=== PATIENT | female | born 2000 | race Caucasian/White ===

== ENCOUNTER 2019-07-25 02:03 | Emergency (ER) | payer MEDICAID ==
[2019-07-25 02:15] VITALS: BP 120/79
[2019-07-25] MEDS ORDERED: diazePAM INJ 5 MG/ML SYRINGE IM STA (02:21)
--- NOTE | 2019-07-25 02:28 | ED Physician Documentation ---
History of Present Illness - Stated complaint Stated Complaint: JAW PX - Chief complaint Chief Complaint: Heent - History obtained from History obtained from: Patient - History of Present Illness Timing: Today Pain level max: 6 Pain level now: 4 - Additonal information Additional information: 18-year-old female with a jaw dislocation. She states that this is happened to her in the past. She states she needs surgery on her temporomandibular joints. She was unable to reduce out at home. Came in for evaluation. Nothing makes it better or worse. Her jaw is stuck open. 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 : None HEENT: Other Psych: Depression, Anxiety Musculoskeletal: None Derm: None - Past Surgical History Past Surgical History: No - Allergies Allergies/Adverse Reactions: Allergies Allergy/AdvReac Type Severity Reaction Status Date / Time soy AdvReac Unknown Verified 07/25/19 02:15 cough suppresant AdvReac Unknown Uncoded 07/25/19 02:16 latex AdvReac Unknown Uncoded 07/25/19 02:18 stimulant AdvReac Unknown Uncoded 07/25/19 02:16 - Social History Does the pt smoke?: No Smoking Status: Never smoker Does the pt drink ETOH?: No Does the pt have substance abuse?: No - Immunizations Immunizations are current?: Yes - POLST Patient has POLST: No PD ED PE NORMAL - Vitals Vital signs reviewed: Yes - General General: Alert and oriented X 3, No acute distress - HEENT HEENT: Moist mucous membranes (Mouth held in open position. Slight drooling) - Neck Neck: Supple, no meningeal sign - Cardiac Cardiac: RRR - Respiratory Respiratory: No respiratory distress, Clear bilaterally - Derm Derm: Warm and dry - Neuro Neuro: Alert and oriented X 3 Results - Vitals Vitals: Vital Signs - 24 hr 07/25/19 07/25/19 02:13 02:15 Temperature 36.6 C Heart Rate 89 Respiratory 17 18 Rate Blood Pressure 120/79 O2 Saturation 99 Oxygen O2 Source Room air Procedures - General procedure General procedure: 5 mg of IM Valium was given to the patient. Extraoral reduction was then performed bilaterally with excellent results. No complications. Patient tolerated well. PD MEDICAL DECISION MAKING - ED course Complexity details: re-evaluated patient, considered differential, d/w patient ED course: Patient with bilateral TMJ dislocation. Attempted reduction with no sedation, but painful for the patient. Therefore 5 mg of IM Valium were given. Extraoral reduction was then reattempted and achieved. Patient with excellent results. No complications. Patient counseled regarding signs and symptoms for which I believe and urgent re-evaluation would be necessary. Patient with good understanding of and agreement to plan and is comfortable going home at this time This document was made in part using voice recognition software. While efforts are made to proofread this document, sound alike and grammatical errors may occur. Departure - Departure Disposition: 01 Home, Self Care Clinical Impression: Temporomandibular joint dislocation Qualifiers: Encounter type: initial encounter Qualified Code(s): S03.00XA - Dislocation of jaw, unspecified side, initial encounter Condition: Good Instructions: ED Dislocation Mandible Follow-Up: ZEESHAN CISNEROS [Physician No Access] - Zeeshan Cisneros DDS [Provider Admit Priv/Credential] - Comments: Return if you worsen. Dr. Cisneros is a local oral maxillofacial surgeon who may be able to help with your recurrent dislocations
== END 2019-07-25 02:50 | disposition home or self-care (01) ==
LOC: ED 02:03
DX: S03.03XA Dislocation of jaw, bilateral, initial encounter (principal); X58.XXXA Exposure to other specified factors, initial encounter
CPT/HCPCS: 21480

== ENCOUNTER 2019-08-21 09:52 | Outpatient (CLI) | payer MEDICAID ==
[2019-08-21 10:19] LABS: BASOPHILS # (AUTO) 0.1 10^3/uL (0.0-0.1); BASOPHILS % (AUTO) 1.3 %; EOSINOPHILS # (AUTO) 0.3 10^3/uL (0.0-0.7); EOSINOPHILS % (AUTO) 3.9 %; HGB - HEMOGLOBIN 13.4 g/dL (12.0-16.0); LYMPHOCYTES # (AUTO) 2.5 10^3/uL (1.5-3.5); LYMPHOCYTES % (AUTO) 36.4 %; MEAN CORPUSCULAR HEMOGLOBIN 30.7 pg (27.0-31.0); MEAN CORPUSCULAR HGB CONC 33.4 g/dL (32.0-36.0); MEAN PLATELET VOLUME 9.4 fL (7.9-10.8); MONOCYTES # (AUTO) 0.5 10^3/uL (0.0-1.0); MONOCYTES % (AUTO) 6.8 %; NEUTROPHILS # (AUTO) 3.5 10^3/uL (1.5-6.6); NEUTROPHILS % (AUTO) 51.3 %; PLT - PLATELET COUNT 268 10^3/uL (130-450); RED BLOOD COUNT 4.36 10^6/uL (4.20-5.40); RED CELL DISTRIBUTION WIDTH 13.7 % (12.0-15.0); WHITE BLOOD COUNT 6.9 x10^3/uL (4.8-10.8)
[2019-08-21 10:29] LABS: MUDS CUTOFF CONCENTRATIONS CUTOFF CONC BELOW:
[2019-08-21 10:38] LABS: ALBUMIN 4.5 g/dL (3.2-5.5); ALBUMIN/GLOBULIN RATIO 1.4 (1.0-2.2); BILIRUBIN,TOTAL 1.1 mg/dL (0.2-1.0); CALCIUM 9.3 mg/dL (8.5-10.3); CREATININE 0.8 mg/dL (0.4-1.0); TOTAL PROTEIN 7.7 g/dL (6.7-8.2)
[2019-08-21 10:42] LABS: AMPHETAMINE SCREEN,URINE NEGATIVE (NEGATIVE); BENZODIAZEPINES SCREEN, URINE NEGATIVE (NEGATIVE); COCAINE SCREEN URINE NEGATIVE (NEGATIVE); METHADONE SCREEN, URINE NEGATIVE (NEGATIVE); METHAMPHETAMINES SCREEN, URINE NEGATIVE (NEGATIVE); OPIATE SCREEN, URINE NEGATIVE (NEGATIVE); OXYCODONE SCREEN, URINE NEGATIVE (NEGATIVE); PROPOXYPHENE SCREEN, URINE NEGATIVE (NEGATIVE); TRICYCLIC ANTIDEPRESSANT,URINE NEGATIVE (NEGATIVE)
== END 2019-08-21 09:53 | disposition home or self-care (01) ==
LOC: LAB 09:52
PROVIDERS: ATTEND Nurse Practitioner Family
DX: R00.2 Palpitations (principal)
CPT/HCPCS: 36415; 80053; 80306; 84443; 85025

== ENCOUNTER 2019-10-11 09:29 | Outpatient (CLI) | payer MEDICAID | END 2019-10-11 09:30 | disposition home or self-care (01) | LOC: DI 09:29 | PROVIDERS: ATTEND Nurse Practitioner Family | DX: R00.2 Palpitations (principal) | CPT/HCPCS: 93306 ==

== ENCOUNTER 2019-10-24 16:23 | Outpatient (CLI) | payer MEDICAID | END 2019-10-24 16:24 | disposition critical access hospital (66) | LOC: EMS 16:23 | PROVIDERS: ATTEND Surgery | DX: R60.0 Localized edema (principal); R21 Rash and other nonspecific skin eruption; R07.9 Chest pain, unspecified; R06.02 Shortness of breath | CPT/HCPCS: A0425; A0427; A0999 ==

== ENCOUNTER 2019-10-24 16:41 | Emergency (ER) | payer MEDICAID ==
[2019-10-24] MEDS ORDERED: SODIUM CHLORIDE 0.9% 1,000 ML IV STA (17:32)
[2019-10-24] MEDS ORDERED: DEXAMETHASONE 10 MG/ML VIAL IVP STA (17:32)
--- NOTE | 2019-10-24 17:35 | ED Physician Documentation ---
PD HPI SKIN - Stated complaint Stated Complaint: ALLERGIC REACTION - Chief complaint Chief Complaint: Allergic Rx - History obtained from History obtained from: Patient, EMS - History of Present Illness Timing - onset: How many weeks ago (1) Timing - duration: Weeks (1) Timing - details: Gradual onset, Still present Location: [place] Quality / character: Itchy, Discolored, Raised Improved by: Benadryl Associated symptoms: Myalgias, Headache, Facial swelling. No: Fever, Joint pain, Dyspnea, Abd pain, N/V/D, Urinary sx Contributing factors: Recent illness. No: Exposed to medication, Exposed to food, Exposed to soap / lotion, Exposed to Poison jose alfredo/oak, Insect bite /sting Similar symptoms before: Diagnosis (allergic reaction) Recently seen: Clinic - Additional information Additional information: 19-year-old female history of eczema has had increasing her symptoms of redness and hives over the past week. She has a number of allergies to stimulants soy cough suppressant and latex. She does not know of any medication that she has taken or any exposure to anything new. She has had some problem with pain in her right ear. Review of Systems Constitutional: reports: Myalgias, Fatigue. 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 : None HEENT: Other Psych: Depression, Anxiety Musculoskeletal: None Derm: None - Past Surgical History Past Surgical History: No - Present Medications Home Medications: Ambulatory Orders Medication Instructions Recorded Confirmed Azithromycin [Zithromax] 250 mg PO DAILY #6 tablet 10/24/19 - Allergies Allergies/Adverse Reactions: Allergies Allergy/AdvReac Type Severity Reaction Status Date / Time soy AdvReac Unknown Verified 10/24/19 16:54 cough suppresant AdvReac Unknown Uncoded 10/24/19 16:54 latex AdvReac Unknown Uncoded 10/24/19 16:54 stimulant AdvReac Unknown Uncoded 10/24/19 16:54 - Social History Does the pt smoke?: No Smoking Status: Never smoker Does the pt drink ETOH?: No Does the pt have substance abuse?: No - Immunizations Immunizations are current?: Yes - POLST Patient has POLST: No PD ED PE NORMAL - Vitals Vital signs reviewed: Yes (normal ) - General General: Alert and oriented X 3, Well developed/nourished, Other (The patient is fast asleep and awakens to answer questions. ) - HEENT HEENT: Atraumatic, PERRL, EOMI, Other (The right TM is inflamed with indistinct landmarks. The left is obscured by cerumen. The mucous membranes are dry. ) - Neck Neck: Supple, no meningeal sign - Cardiac Cardiac: RRR, No murmur - Respiratory Respiratory: No respiratory distress, Clear bilaterally - Abdomen Abdomen: Soft, Non tender - Back Back: No CVA TTP, No spinal TTP - Derm Derm: Normal color, Warm and dry, Other (There is swelling to the mid face with erythema to the eyelids. There are urticaria scattered through the rest of the body and dry lichenified skin consistent with eczema. ) - Extremities Extremities: No deformity, Normal ROM s pain, No edema, No calf tenderness / cord - Neuro Neuro: Alert and oriented X 3, director of dance 2-12 intact, No motor deficit, No sensory deficit, Normal speech Eye Opening: Spontaneous Motor: Obeys Commands Verbal: Oriented GCS Score: 15 - Psych Psych: Normal mood, Normal affect Results - Vitals Vitals: Vital Signs - 24 hr 10/24/19 10/24/19 16:50 18:54 Temperature 37.0 C Heart Rate 68 59 L Respiratory 16 12 Rate Blood Pressure 118/69 122/74 O2 Saturation 99 99 Oxygen O2 Source Room air PD MEDICAL DECISION MAKING - ED course Complexity details: considered differential, d/w patient ED course: 19-year-old female with urticaria and eczema that is worse than usual and she has otitis on exam. She appears a bit dehydrated as well. She is administered dexamethasone 10 mg intravenously as well as a liter of saline. She is administered Rocephin as well. Departure - Departure Disposition: Home, Self Care Clinical Impression: Allergic urticaria Otitis media Qualifiers: Otitis media type: suppurative Chronicity: acute Laterality: right Recurrence: non-recurrent Spontaneous tympanic membrane rupture: without spontaneous rupture Qualified Code(s): H66.001 - Acute suppurative otitis media without spontaneous rupture of ear drum, right ear Condition: Stable Instructions: ED Allergic Reaction General Other, ED Otitis Media Acute Adult Follow-Up: Tenisha Rodrigues ARNP [Provider Admit Priv/Credential] - Prescriptions: Azithromycin [Zithromax] 250 mg PO DAILY #6 tablet
[2019-10-24] MEDS ORDERED: cefTRIAXone 1 GM in SODIUM CHLORIDE 0.9% MINIBAG 100 ML IV STA (17:39)
[2019-10-24 19:17] VITALS: BP 122/74
== END 2019-10-24 19:19 | disposition home or self-care (01) ==
LOC: EDUNIT# → EDBD → ED 16:41
DX: L50.0 Allergic urticaria (principal); L30.9 Dermatitis, unspecified; H66.001 Acute suppurative otitis media without spontaneous rupture of ear drum, right ear
CPT/HCPCS: 96365; 96375; 99284

== ENCOUNTER 2019-10-29 05:04 | Emergency (ER) | payer MEDICAID ==
--- NOTE | 2019-10-29 05:08 | ED Physician Documentation ---
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 She denies any trauma. Reports that she went to sleep and woke up with her jaw dislocated. 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 : None HEENT: Other Psych: Depression, Anxiety Musculoskeletal: None Derm: None - Past Surgical History Past Surgical History: No - Present Medications Home Medications: Ambulatory Orders Medication Instructions Recorded Confirmed Azithromycin [Zithromax] 250 mg PO DAILY #6 tablet 10/24/19 10/29/19 - Allergies Allergies/Adverse Reactions: Allergies Allergy/AdvReac Type Severity Reaction Status Date / Time diphenhydramine Allergy Unknown Verified 10/29/19 05:17 [From Benadryl] soy AdvReac Unknown Verified 10/29/19 05:17 cough suppresant AdvReac Unknown Uncoded 10/29/19 05:17 latex AdvReac Unknown Uncoded 10/29/19 05:17 stimulant AdvReac Unknown Uncoded 10/29/19 05:17 - Social History Does the pt smoke?: No Smoking Status: Never smoker Does the pt drink ETOH?: No Does the pt have substance abuse?: No - Immunizations Immunizations are current?: Yes - POLST Patient has POLST: No Results - Vitals Vitals: Vital Signs - 24 hr 10/29/19 05:05 Temperature 36.6 C Heart Rate 81 Respiratory 14 Rate Blood Pressure 113/69 O2 Saturation 99 Oxygen O2 Source Room air Procedures - General procedure General procedure: Digital sedation after informed consent was signed by the patient patient was sedated with 90 mg of propofol and 75 mcg of fentanyl with end-tidal and pulse oximeter aerospace control and warning systems continuous blood pressure in. Her bilateral mandibular dislocation was reduced using inferior and posterior manual reduction that was open with good successful reduction patient able to open and close her mouth within normal voice her jaw was secured in a posterior anterior and superior inferior bandage using Wiliam wraps. Patient will be discharged home and referred to [facility]. PD MEDICAL DECISION MAKING - ED course Complexity details: reviewed results, re-evaluated patient, considered differential (Bilateral mandibular dislocation.), d/w patient ED course: 19-year-old female with spontaneous bilateral mandibular anterior dislocations without fracture confirmed by CT patient was procedurally sedated with propofol and fentanyl with good reduction.Mandible was reduced with manual reduction. Patient tolerated well. Departure - Departure Disposition: 01 Home, Self Care Clinical Impression: Closed dislocation of mandible Qualifiers: Encounter type: subsequent encounter Qualified Code(s): S03.00XD - Dislocation of jaw, unspecified side, subsequent encounter Temporomandibular joint dislocation Qualifiers: Encounter type: initial encounter Qualified Code(s): S03.00XA - Dislocation of jaw, unspecified side, initial encounter Condition: Stable Instructions: ED Dislocation Mandible Follow-Up: Tenisha Rodrigues ARNP [Primary Care Provider] - Zeeshan Germain DDS [Provider Admit Priv/Credential] - Comments: Follow-up with your primary care provider today and oral maxillofacial surgery.
[2019-10-29] MEDS ORDERED: PROPOFOL 200 MG/20 ML VIAL IVP STA ×2 (06:11→06:35)
[2019-10-29] MEDS ORDERED: fentaNYL 100 MCG/2 ML VIAL ONE (06:43)
[2019-10-29] MEDS ORDERED: fentaNYL 100 MCG/2 ML VIAL IVP STA (07:03)
[2019-10-29 07:53] VITALS: BP 108/74
--- NOTE | 2019-10-29 08:13 | CT Report ---
PROCEDURE: MAXILLOFACIAL WO INDICATIONS: bilateral jaw pain TECHNIQUE: Noncontrast 1.5 mm thick axial images acquired from the mandible through the frontal sinuses, with co sharifa and sagittal reformatting. For radiation dose reduction, the following was used: automated ex posure control, adjustment of mA and/or kV according to patient size. COMPARISON: None. FINDINGS: Image quality: Excellent. Bones and teeth: Orbital koenig are intact. Sinus koenig show no fracture or deformity. Nasal bones and septum are intact. Visualized portions of the mandible demonstrate no fractures. There is anteri or dislocation, measuring approximately 1.9 cm of the right mandibular condyle in relation to the tem poromandibular joint space. Similar anterior dislocation is noted on the left measuring approximatel y 2.0 cm Zygomatic arches are intact. Pterygoid plates are intact. Visualized portions of the skull base and auditory canals are intact. Sinuses: Paranasal sinuses are aerated, without fluid levels, mucosal thickening, or mucoceles. Mas toid air cells are aerated. Soft tissues: No edema, masses, or fluid collections. No enlarged lymph nodes. No soft tissue lace rations or debris. Vascular: Visualized vascular structures appear normal in the absence of contrast. Bony vascular fo ramina and canals are intact. IMPRESSION: 1. Bilateral mandibular condyle anterior dislocation as above without visualized fracture. The above findings are concordant with preliminary report. Reviewed by: Masha Patiño MD on 10/29/2019 8:11 AM PDT Approved by: Masha Patiño MD on 10/29/2019 8:11 AM PDT Station ID: [id number]
== END 2019-10-29 07:53 | disposition home or self-care (01) ==
LOC: ED 05:04
DX: S03.03XA Dislocation of jaw, bilateral, initial encounter (principal); X58.XXXA Exposure to other specified factors, initial encounter
CPT/HCPCS: 21451; 21480; 70486; 94770; 99152; 99281

== ENCOUNTER 2019-11-04 20:52 | Emergency (ER) | payer MEDICAID ==
[2019-11-04] MEDS ORDERED: SODIUM CHLORIDE 0.9% 1,000 ML IV STA (21:59)
[2019-11-04 22:10] LABS: BASOPHILS # (AUTO) 0.1 10^3/uL (0.0-0.1); BASOPHILS % (AUTO) 0.9 %; EOSINOPHILS # (AUTO) 0.2 10^3/uL (0.0-0.7); EOSINOPHILS % (AUTO) 2.8 %; HGB - HEMOGLOBIN 13.5 g/dL (12.0-16.0); LYMPHOCYTES # (AUTO) 1.8 10^3/uL (1.5-3.5); LYMPHOCYTES % (AUTO) 26.8 %; MEAN CORPUSCULAR HEMOGLOBIN 30.3 pg (27.0-31.0); MEAN CORPUSCULAR HGB CONC 34.1 g/dL (32.0-36.0); MEAN PLATELET VOLUME 9.3 fL (7.9-10.8); MONOCYTES # (AUTO) 0.4 10^3/uL (0.0-1.0); NEUTROPHILS # (AUTO) 4.3 10^3/uL (1.5-6.6); NEUTROPHILS % (AUTO) 63.4 %; PLT - PLATELET COUNT 250 10^3/uL (130-450); RED BLOOD COUNT 4.45 10^6/uL (4.20-5.40); RED CELL DISTRIBUTION WIDTH 13.3 % (12.0-15.0); WHITE BLOOD COUNT 6.7 x10^3/uL (4.8-10.8)
[2019-11-04 22:23] LABS: ALBUMIN 4.6 g/dL (3.2-5.5); ALBUMIN/GLOBULIN RATIO 1.4 (1.0-2.2); BILIRUBIN,TOTAL 1.1 mg/dL (0.2-1.0); CALCIUM 9.4 mg/dL (8.5-10.3); CREATININE 0.7 mg/dL (0.4-1.0)
[2019-11-04] MEDS ORDERED: predniSONE 20 MG TABLET PO STA (23:52)
[2019-11-04 23:56] LABS: BILIRUBIN,URINE NEGATIVE (NEGATIVE); GLUCOSE, URINE (UA) NEGATIVE (NEGATIVE); KETONES,URINE (UA) NEGATIVE (NEGATIVE); LEUKOCYTE ESTERASE, URINE TRACE (NEGATIVE); NITRITE,URINE NEGATIVE (NEGATIVE); OCCULT BLOOD,URINE NEGATIVE (NEGATIVE); PH,URINE 7.5 PH (5.0-7.5); PROTEIN,URINE NEGATIVE (NEGATIVE); UROBILINOGEN,URINE 0.2 (NORMAL) E.U./dL (NORMAL)
[2019-11-05 00:09] LABS: BACTERIA,URINE Rare /HPF (None Seen); CLARITY,URINE CLEAR (CLEAR); HCG UR QUAL NEGATIVE; RBC,URINE 0-5 /HPF (0-5); SQUAMOUS EPITHELIAL CELL,UR MOD Squamous (<= Few)
[2019-11-05 00:20] VITALS: BP 109/66
--- NOTE | 2019-11-05 07:22 | ED Physician Documentation ---
History of Present Illness - Stated complaint Stated Complaint: ALLERGIC REACTION - Chief complaint Chief Complaint: Allergic Rx - History obtained from History obtained from: Patient - History of Present Illness Timing: How many weeks ago (2-3) Pain level now: 4 Improved by: nothing Worsened by: no exacerbating factors - Additonal information Additional information: T+R from this ED 3 weeks ago for facial erythema and swelling, given one-time dose of steroid, rocephin, and rx zithromax. She also was T+R 1 week ago for bilateral TMJ dislocation. She returns due to recurrence of the swelling, redness, irritation around both eyes. She also c/o dyspnea, palpitations, chest pain and pain going down LUE. Review of Systems Constitutional: denies: Fever Ears: denies: Ear pain Nose: denies: Rhinorrhea / runny nose, Congestion Cardiac: reports: Chest pain / pressure, Palpitations. denies: Pedal edema, Calf pain Respiratory: reports: Dyspnea. 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 : None HEENT: Other Psych: Depression, Anxiety Musculoskeletal: None Derm: None - Past Surgical History Past Surgical History: No - Present Medications Home Medications: Ambulatory Orders Medication Instructions Recorded Confirmed Azithromycin [Zithromax] 250 mg PO DAILY #6 tablet 10/24/19 10/29/19 predniSONE [Prednisone] 40 mg PO DAILY 3 Days #6 tablet 11/04/19 - Allergies Allergies/Adverse Reactions: Allergies Allergy/AdvReac Type Severity Reaction Status Date / Time diphenhydramine Allergy Unknown Verified 11/04/19 21:02 [From Benadryl] soy AdvReac Unknown Verified 11/04/19 21:02 cough suppresant AdvReac Unknown Uncoded 11/04/19 21:02 latex AdvReac Unknown Uncoded 11/04/19 21:02 stimulant AdvReac Unknown Uncoded 11/04/19 21:02 - Social History Does the pt smoke?: No Smoking Status: Never smoker Does the pt drink ETOH?: No Does the pt have substance abuse?: No - Immunizations Immunizations are current?: Yes - POLST Patient has POLST: No PD ED PE NORMAL - Vitals Vital signs reviewed: Yes - General General: Alert and oriented X 3, No acute distress, Well developed/nourished - HEENT HEENT: PERRL, EOMI, Moist mucous membranes, Other (mild periorbital cutaneous erythema without obvious edema) - Neck Neck: Supple, no meningeal sign - Cardiac Cardiac: RRR, No murmur, No gallop, No rub - Respiratory Respiratory: No respiratory distress, Clear bilaterally - Abdomen Abdomen: Soft, Non tender PD ED PE EXPANDED - Derm Derm: Rash (patchy raised erythema with dry, scaly skin on LUE antecubital fossa and right knee at posterior aspect) Results - Vitals Vitals: Vital Signs - 24 hr 11/04/19 11/04/19 11/05/19 21:02 23:03 00:19 Temperature 36.8 C Heart Rate 88 74 84 Respiratory 14 14 14 Rate Blood Pressure 121/95 H 108/57 L 109/66 O2 Saturation 99 100 99 Oxygen O2 Source Room air - Labs Labs: Laboratory Tests 11/04/19 11/04/19 11/04/19 22:08 22:08 23:40 WBC 6.7 RBC 4.45 Hgb 13.5 Hct 39.6 MCV 89.0 MCH 30.3 MCHC 34.1 RDW 13.3 Plt Count 250 MPV 9.3 Neut # (Auto) 4.3 Lymph # (Auto) 1.8 Rains # (Auto) 0.4 Eos # (Auto) 0.2 Baso # (Auto) 0.1 Absolute Nucleated RBC 0.00 Nucleated RBC % 0.0 Sodium 135 Potassium 3.8 Chloride 100 L Carbon Dioxide 25 Anion Gap 10.0 BUN 11 Creatinine 0.7 Estimated GFR (MDRD) 107 Glucose 82 Calcium 9.4 Total Bilirubin 1.1 H AST 21 ALT 25 Alkaline Phosphatase 54 Total Protein 8.0 Albumin 4.6 Globulin 3.4 Albumin/Globulin Ratio 1.4 Lipase 29 Urine Color YELLOW Urine Clarity CLEAR Urine pH 7.5 Ur Specific [place] 1.015 Urine Protein NEGATIVE Urine Glucose (UA) NEGATIVE Urine Ketones NEGATIVE Urine Occult Blood NEGATIVE Urine Nitrite NEGATIVE Urine Bilirubin NEGATIVE Urine Urobilinogen 0.2 (NORMAL) Ur Leukocyte Esterase TRACE H Urine RBC 0-5 Urine WBC 0-3 Ur Squamous Epith Cells MOD Squamous H Urine Bacteria Rare Ur Microscopic Review INDICATED Urine Culture Comments NOT INDICATED Urine HCG, Qual NEGATIVE PD MEDICAL DECISION MAKING - ED course Complexity details: reviewed old records, reviewed results, re-evaluated patient, considered differential, d/w patient Departure - Departure Disposition: 01 Home, Self Care Clinical Impression: Dermatitis Condition: Good Instructions: ED Dermatitis Atopic Eczema Follow-Up: Angella Nolen ARNP, [facility] [Primary Care Provider] - Prescriptions: predniSONE [Prednisone] 40 mg PO DAILY 3 Days #6 tablet Discharge Date/Time: 11/05/19 00:19
== END 2019-11-05 00:19 | disposition home or self-care (01) ==
LOC: ED 20:52
DX: L30.9 Dermatitis, unspecified (principal)
CPT/HCPCS: 36415; 80053; 81001; 81025; 83690; 85025; 96360; 99284; J7512; 81003; 87086

== ENCOUNTER 2019-11-21 08:30 | Emergency (ER) | payer MEDICAID ==
[2019-11-21] MEDS ORDERED: SODIUM CHLORIDE 0.9% 1,000 ML IV STA (09:06)
--- NOTE | 2019-11-21 09:09 | ED Physician Documentation ---
PD HPI FEVER - Stated complaint Stated Complaint: FEVER - History obtained from History obtained from: Patient - Additional information Additional information: 19-year-old woman presents with fever starting this morning. 103 at home. Associated with a runny nose but no cough, urinary complaints, abdominal pain. On initial arrival she says she is passing out and cannot stay conscious, she subsequently apparently has a syncopal episode but responds promptly to sternal rub, says this has been happening for quite some time. Review of PCP notes suggestive of underlying psychiatric issues and patient notes that her mother had Munchhausen's by proxy. Review of Systems Constitutional: reports: Fever, Chills, Fatigue Cardiac: reports: Palpitations. 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 : None HEENT: Other Psych: Depression, Anxiety, Post traumatic stress disorder, Eating disorder, Other Musculoskeletal: Other Derm: Eczema - Past Surgical History Past Surgical History: No - Present Medications Home Medications: Ambulatory Orders Medication Instructions Recorded Confirmed No Known Home Medications 11/13/19 11/13/19 - Allergies Allergies/Adverse Reactions: Allergies Allergy/AdvReac Type Severity Reaction Status Date / Time diphenhydramine Allergy Unknown Verified 11/21/19 09:10 [From Benadryl] soy AdvReac Unknown Verified 11/21/19 09:10 cough suppresant AdvReac Unknown Uncoded 11/21/19 09:10 latex AdvReac Unknown Uncoded 11/21/19 09:10 stimulant AdvReac Unknown Uncoded 11/21/19 09:10 - Social History Does the pt smoke?: No Smoking Status: Never smoker Does the pt drink ETOH?: No Does the pt have substance abuse?: No - Immunizations Immunizations are current?: Yes - POLST Patient has POLST: No PD ED PE NORMAL - Vitals Vital signs reviewed: Yes - General General: Alert and oriented X 3, No acute distress, Other (On initial evaluation she appears unconscious in bed but was promptly responds to sternal rub. No postictal period. Peripheral pulses strong. Blood sugar normal.) - HEENT HEENT: PERRL, EOMI - Neck Neck: Supple, no meningeal sign, No bony TTP - Cardiac Cardiac: RRR, No murmur - Respiratory Respiratory: No respiratory distress, Clear bilaterally - Abdomen Abdomen: Normal bowel sounds, Soft, Non tender - Back Back: No CVA TTP, No spinal TTP - Derm Derm: Normal color, Warm and dry - Extremities Extremities: No edema, No calf tenderness / cord - Neuro Neuro: Alert and oriented X 3, No motor deficit, No sensory deficit, Normal speech - Psych Psych: Other (Occasional inappropriate laughter) Results - Vitals Vitals: Vital Signs - 24 hr 11/21/19 09:00 Temperature 36.9 C Heart Rate 98 Respiratory 16 Rate Blood Pressure 129/79 O2 Saturation 100 Oxygen O2 Source Room air - EKG (time done) 0912 Rate: Rate (enter#) (83) Rhythm: NSR [place]: Normal Intervals: Normal [place] QRS: Normal Ischemia: Normal ST segments - Labs Labs: Laboratory Tests 11/21/19 11/21/19 11/21/19 09:05 09:32 09:32 WBC 7.6 RBC 4.45 Hgb 13.4 Hct 40.6 MCV 91.2 MCH 30.1 MCHC 33.0 RDW 13.9 Plt Count 251 MPV 9.9 Neut # (Auto) 4.5 Lymph # (Auto) 2.2 [place] # (Auto) 0.5 Eos # (Auto) 0.3 Baso # (Auto) 0.1 Absolute Nucleated RBC 0.00 Nucleated RBC % 0.0 Sodium 141 Potassium 3.9 Chloride 106 Carbon Dioxide 27 Anion Gap 8.0 BUN 13 Creatinine 0.6 Estimated GFR (MDRD) 127 Glucose 81 POC Whole Bld Glucose 84 Calcium 9.7 Total Bilirubin 0.8 AST 23 ALT 15 Alkaline Phosphatase 56 Total Protein 8.3 H Albumin 4.8 Globulin 3.5 Albumin/Globulin Ratio 1.4 Lipase 25 Urine Color Urine Clarity Urine pH Ur Specific [place] Urine Protein Urine Glucose (UA) Urine Ketones Urine Occult Blood Urine Nitrite Urine Bilirubin Urine Urobilinogen Ur Leukocyte Esterase Urine RBC Urine WBC Ur Squamous Epith Cells Urine Bacteria Ur Microscopic Review Urine Culture Comments Urine HCG, Qual 11/21/19 09:52 WBC RBC Hgb Hct MCV MCH MCHC RDW Plt Count MPV Neut # (Auto) Lymph # (Auto) [place] # (Auto) Eos # (Auto) Baso # (Auto) Absolute Nucleated RBC Nucleated RBC % Sodium Potassium Chloride Carbon Dioxide Anion Gap BUN Creatinine Estimated GFR (MDRD) Glucose POC Whole Bld Glucose Calcium Total Bilirubin AST ALT Alkaline Phosphatase Total Protein Albumin Globulin Albumin/Globulin Ratio Lipase Urine Color YELLOW Urine Clarity SL. CLOUDY Urine pH 7.0 Ur Specific [place] 1.020 Urine Protein NEGATIVE Urine Glucose (UA) NEGATIVE Urine Ketones NEGATIVE Urine Occult Blood NEGATIVE Urine Nitrite NEGATIVE Urine Bilirubin NEGATIVE Urine Urobilinogen 0.2 (NORMAL) Ur Leukocyte Esterase MODERATE H Urine RBC 0-5 Urine WBC 11-25 H Ur Squamous Epith Cells MOD Squamous H Urine Bacteria Moderate H Ur Microscopic Review INDICATED Urine Culture Comments NOT INDICATED Urine HCG, Qual NEGATIVE PD MEDICAL DECISION MAKING - ED course ED course: 19-year-old presents with fever at home but not corroborated here. Work-up is negative except for contaminated urinalysis but no symptoms of UTI. Coronavirus testing is pending. Normal vital signs and EKG here. Departure - Departure Disposition: Home, Self Care Clinical Impression: Dizziness Fever Qualifiers: Fever type: unspecified Qualified Code(s): R50.9 - Fever, unspecified Condition: Stable Record reviewed to determine appropriate education?: Yes Instructions: ED Fever Unconf Cause Comments: Labs today show no evidence of a bacterial or other serious infection. Coronavirus testing is pending and you need to self quarantine until it is negative. This may take a day or 2. Fastest way to get results is to log onto the hospital website and sign up for the patient portal. We will only call if the result is positive. Forms: Activity restrictions
[2019-11-21 09:40] LABS: BASOPHILS # (AUTO) 0.1 10^3/uL (0.0-0.1); BASOPHILS % (AUTO) 0.9 %; EOSINOPHILS # (AUTO) 0.3 10^3/uL (0.0-0.7); EOSINOPHILS % (AUTO) 3.9 %; HGB - HEMOGLOBIN 13.4 g/dL (12.0-16.0); LYMPHOCYTES # (AUTO) 2.2 10^3/uL (1.5-3.5); LYMPHOCYTES % (AUTO) 29.4 %; MEAN CORPUSCULAR HEMOGLOBIN 30.1 pg (27.0-31.0); MEAN CORPUSCULAR VOLUME 91.2 fL (81.0-99.0); MEAN PLATELET VOLUME 9.9 fL (7.9-10.8); MONOCYTES # (AUTO) 0.5 10^3/uL (0.0-1.0); MONOCYTES % (AUTO) 6.6 %; NEUTROPHILS # (AUTO) 4.5 10^3/uL (1.5-6.6); NEUTROPHILS % (AUTO) 58.9 %; PLT - PLATELET COUNT 251 10^3/uL (130-450); RED BLOOD COUNT 4.45 10^6/uL (4.20-5.40); RED CELL DISTRIBUTION WIDTH 13.9 % (12.0-15.0); WHITE BLOOD COUNT 7.6 x10^3/uL (4.8-10.8)
[2019-11-21 10:00] LABS: ALBUMIN 4.8 g/dL (3.2-5.5); ALBUMIN/GLOBULIN RATIO 1.4 (1.0-2.2); BILIRUBIN,TOTAL 0.8 mg/dL (0.2-1.0); CALCIUM 9.7 mg/dL (8.5-10.3); CREATININE 0.6 mg/dL (0.4-1.0); TOTAL PROTEIN 8.3 g/dL (6.7-8.2)
[2019-11-21 10:07] LABS: BILIRUBIN,URINE NEGATIVE (NEGATIVE); GLUCOSE, URINE (UA) NEGATIVE (NEGATIVE); KETONES,URINE (UA) NEGATIVE (NEGATIVE); LEUKOCYTE ESTERASE, URINE MODERATE (NEGATIVE); NITRITE,URINE NEGATIVE (NEGATIVE); OCCULT BLOOD,URINE NEGATIVE (NEGATIVE); PROTEIN,URINE NEGATIVE (NEGATIVE); UROBILINOGEN,URINE 0.2 (NORMAL) E.U./dL (NORMAL)
[2019-11-21 10:10] LABS: CLARITY,URINE SL. CLOUDY (CLEAR); HCG UR QUAL NEGATIVE
[2019-11-21 10:16] LABS: RBC,URINE 0-5 /HPF (0-5)
[2019-11-21 10:17] LABS: BACTERIA,URINE Moderate /HPF (None Seen); SQUAMOUS EPITHELIAL CELL,UR MOD Squamous (<= Few)
[2019-11-21 10:56] VITALS: BP 106/78
== END 2019-11-21 10:57 | disposition home or self-care (01) ==
LOC: ED 08:30
DX: R42 Dizziness and giddiness (principal); R50.9 Fever, unspecified; Z20.828 Contact with and (suspected) exposure to other viral communicable diseases
CPT/HCPCS: 36415; 80053; 81001; 81003; 81025; 83690; 85025; 87086; 93005; 96360; 99283

== ENCOUNTER 2019-12-24 12:45 | Emergency (ER) | payer MEDICAID ==
[2019-12-24] MEDS ORDERED: ONDANSETRON 4 MG/2 ML VIAL IVP STA (13:07)
[2019-12-24] MEDS ORDERED: KETOROLAC 30 MG/ML VIAL IVP STA (13:07)
[2019-12-24] MEDS ORDERED: SODIUM CHLORIDE 0.9% 1,000 ML IV STA (13:07)
--- NOTE | 2019-12-24 13:08 | ED Physician Documentation ---
PD HPI NVD - Stated complaint Stated Complaint: N/V - Chief complaint Chief Complaint: Abd Pain - History obtained from History obtained from: Patient - Additonal information Additional information: Current illness started a week ago. She developed some central abdominal pain and vomiting. Subsequently developed diarrhea for several days. Today became nauseous again. Doubts any possibility of . Does not use marijuana. No sick contacts. No abdominal surgeries. No fever. No recent travel. Review of Systems Constitutional: denies: Fever, Chills GI: reports: Abdominal Pain, Nausea, Vomiting, Diarrhea. denies: Hematemesis, Bloody / black stool : reports: LMP (current). 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 HEENT: Other Psych: Depression, Anxiety, Post traumatic stress disorder, Eating disorder, Other Musculoskeletal: Other Derm: Eczema - Past Surgical History Past Surgical History: No - Present Medications Home Medications: Ambulatory Orders Medication Instructions Recorded Confirmed Dicyclomine [Bentyl] 1 - 2 tab PO QID PRN #20 capsule 12/24/19 Ondansetron Odt [Zofran] 4 mg TL Q6H PRN #10 tablet 12/24/19 - Allergies Allergies/Adverse Reactions: Allergies Allergy/AdvReac Type Severity Reaction Status Date / Time diphenhydramine Allergy Unknown Verified 12/24/19 12:56 [From Benadryl] soy AdvReac Unknown Verified 12/24/19 12:56 cough suppresant AdvReac Unknown Uncoded 12/24/19 12:56 latex AdvReac Unknown Uncoded 12/24/19 12:56 stimulant AdvReac Unknown Uncoded 12/24/19 12:56 - Social History Does the pt smoke?: No Smoking Status: Never smoker Does the pt drink ETOH?: No Does the pt have substance abuse?: No - Immunizations Immunizations are current?: Yes - POLST Patient has POLST: No PD ED PE NORMAL - Vitals Vital signs reviewed: Yes - General General: Alert and oriented X 3, No acute distress - Cardiac Cardiac: RRR, No murmur - Respiratory Respiratory: No respiratory distress, Clear bilaterally - Abdomen Abdomen: Normal bowel sounds, Soft, Non tender - Back Back: No CVA TTP, No spinal TTP - Derm Derm: Normal color, Warm and dry - Extremities Extremities: No edema, No calf tenderness / cord - Neuro Neuro: Alert and oriented X 3, Normal speech Results - Vitals Vitals: Vital Signs - 24 hr 12/24/19 12/24/19 12:51 12:56 Temperature 36.6 C 36.6 C Heart Rate 86 86 Respiratory 18 18 Rate Blood Pressure 105/68 105/68 O2 Saturation 98 98 Oxygen O2 Source Room air - Labs Labs: Laboratory Tests 12/24/19 12/24/19 12/24/19 13:15 13:30 13:30 WBC 6.6 RBC 4.47 Hgb 13.5 Hct 39.8 MCV 89.0 MCH 30.2 MCHC 33.9 RDW 13.3 Plt Count 270 MPV 9.9 Neut # (Auto) 3.4 Lymph # (Auto) 2.5 [place] # (Auto) 0.4 Eos # (Auto) 0.2 Baso # (Auto) 0.1 Absolute Nucleated RBC 0.00 Nucleated RBC % 0.0 Sodium 138 Potassium 3.6 Chloride 100 L Carbon Dioxide 25 Anion Gap 13.0 BUN 11 Creatinine 0.6 Estimated GFR (MDRD) 127 Glucose 90 Calcium 9.6 Total Bilirubin 0.6 AST 23 ALT 18 Alkaline Phosphatase 55 Total Protein 7.9 Albumin 4.5 Globulin 3.4 Albumin/Globulin Ratio 1.3 Lipase 26 Urine Color YELLOW Urine Clarity HAZY Urine pH 5.0 Ur Specific [place] >=1.030 H Urine Protein NEGATIVE Urine Glucose (UA) NEGATIVE Urine Ketones NEGATIVE Urine Occult Blood LARGE H Urine Nitrite NEGATIVE Urine Bilirubin NEGATIVE Urine Urobilinogen 0.2 (NORMAL) Ur Leukocyte Esterase NEGATIVE Urine RBC 6-10 H Urine WBC 11-25 H Ur Squamous Epith Cells MANY Squamous H Urine Bacteria Many H Urine Mucus Marked Strands Ur Microscopic Review INDICATED Urine Culture Comments NOT INDICATED Urine HCG, Qual NEGATIVE PD MEDICAL DECISION MAKING - ED course ED course: Reevaluated at 2:20 PM, pain-free and nausea free. We will attempt an oral challenge. Exam remains benign. Labs reviewed and unremarkable. Departure - Departure Disposition: 01 Home, Self Care Clinical Impression: Vomiting Qualifiers: Vomiting type: unspecified Vomiting Intractability: intractable Nausea presence: with nausea Qualified Code(s): R11.2 - Nausea with vomiting, unspecified Abdominal pain Qualifiers: Abdominal location: unspecified location Qualified Code(s): R10.9 - Unspecified abdominal pain Diarrhea Qualifiers: Diarrhea type: presumed infectious Qualified Code(s): R19.7 - Diarrhea, unspecified Condition: Good Record reviewed to determine appropriate education?: Yes Instructions: ED Diet Vomiting Diarrhea, ED Abdominal Pain Appendx Poss Prescriptions: Dicyclomine [Bentyl] 1 - 2 tab PO QID PRN #20 capsule PRN Reason: Abdominal Pain Ondansetron Odt [Zofran] 4 mg TL Q6H PRN #10 tablet PRN Reason: Nausea / Vomiting Comments: You were seen today for vomiting, abdominal pain, and diarrhea. Your labs look okay and you feel better after some medications. Most syndromes with this combination of symptoms are viral and go away without specific intervention. Return if worsening or not better in the next 48 hours.
[2019-12-24 13:36] LABS: BILIRUBIN,URINE NEGATIVE (NEGATIVE); GLUCOSE, URINE (UA) NEGATIVE (NEGATIVE); KETONES,URINE (UA) NEGATIVE (NEGATIVE); LEUKOCYTE ESTERASE, URINE NEGATIVE (NEGATIVE); NITRITE,URINE NEGATIVE (NEGATIVE); OCCULT BLOOD,URINE LARGE (NEGATIVE); PROTEIN,URINE NEGATIVE (NEGATIVE); UROBILINOGEN,URINE 0.2 (NORMAL) E.U./dL (NORMAL)
[2019-12-24 13:37] LABS: BASOPHILS # (AUTO) 0.1 10^3/uL (0.0-0.1); BASOPHILS % (AUTO) 0.9 %; EOSINOPHILS # (AUTO) 0.2 10^3/uL (0.0-0.7); EOSINOPHILS % (AUTO) 3.3 %; HGB - HEMOGLOBIN 13.5 g/dL (12.0-16.0); LYMPHOCYTES # (AUTO) 2.5 10^3/uL (1.5-3.5); LYMPHOCYTES % (AUTO) 37.9 %; MEAN CORPUSCULAR HEMOGLOBIN 30.2 pg (27.0-31.0); MEAN CORPUSCULAR HGB CONC 33.9 g/dL (32.0-36.0); MEAN PLATELET VOLUME 9.9 fL (7.9-10.8); MONOCYTES # (AUTO) 0.4 10^3/uL (0.0-1.0); MONOCYTES % (AUTO) 6.7 %; NEUTROPHILS # (AUTO) 3.4 10^3/uL (1.5-6.6); PLT - PLATELET COUNT 270 10^3/uL (130-450); RED BLOOD COUNT 4.47 10^6/uL (4.20-5.40); RED CELL DISTRIBUTION WIDTH 13.3 % (12.0-15.0); WHITE BLOOD COUNT 6.6 x10^3/uL (4.8-10.8)
[2019-12-24 13:39] LABS: CLARITY,URINE HAZY (CLEAR); HCG UR QUAL NEGATIVE
[2019-12-24 13:55] LABS: BACTERIA,URINE Many /HPF (None Seen); MUCUS,URINE Marked Strands; SQUAMOUS EPITHELIAL CELL,UR MANY Squamous (<= Few)
[2019-12-24 13:57] LABS: ALBUMIN 4.5 g/dL (3.2-5.5); ALBUMIN/GLOBULIN RATIO 1.3 (1.0-2.2); BILIRUBIN,TOTAL 0.6 mg/dL (0.2-1.0); CALCIUM 9.6 mg/dL (8.5-10.3); CREATININE 0.6 mg/dL (0.4-1.0); TOTAL PROTEIN 7.9 g/dL (6.7-8.2)
[2019-12-24 14:57] VITALS: BP 108/68
== END 2019-12-24 14:56 | disposition home or self-care (01) ==
LOC: ED 12:45
DX: R11.2 Nausea with vomiting, unspecified (principal); R10.9 Unspecified abdominal pain; R19.7 Diarrhea, unspecified
CPT/HCPCS: 36415; 80053; 81001; 81003; 81025; 83690; 85025; 87086; 96361; 96374; 96375; 99284

== ENCOUNTER 2019-12-25 15:52 | Outpatient (CLI) | payer MEDICAID ==
[2019-12-25] MEDS ORDERED: IOVERSOL 320 100 ML VIAL IVP ONE ×2 (16:05→17:25)
[2019-12-25] MEDS ORDERED: IOVERSOL 320 50 ML VIAL ONE (16:05)
[2019-12-25] MEDS ORDERED: IOVERSOL 320 50 ML VIAL PO ONE (17:25)
--- NOTE | 2019-12-25 17:32 | CT Report ---
PROCEDURE: Abdomen/Pelvis W INDICATIONS: RT LOWER QUAD ABD PAIN CONTRAST: IV CONTRAST: Optiray 320 ml: 80 PO CONTRAST: Optiray 320 ml50 TECHNIQUE: After the administration of nonionic IV contrast, 5 mm thick sections acquired from the diaphragms to the symphysis. 5 mm thick coronal and sagittal reformats were acquired. For radiation dose reducti on, the following was used: automated exposure control, adjustment of mA and/or kV according to anat ent size. COMPARISON: None. FINDINGS: Image quality: Excellent. ABDOMEN: Lung bases: Lung bases are clear. Heart size is normal. Solid organs: Liver and spleen are normal in size and enhancement. 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 Gallbladder wall does not appear thick ened. Biliary system is non dilated. Pancreas enhances normally. No adrenal nodules. Kidneys de monstrate normal size and enhancement, without hydronephrosis. Peritoneum and bowel: In this patient with this given history, scrutiny is given to the appendix. Th e appendix is normal and fills with contrast. No focal right lower quadrant inflammatory changes are seen. Bowel loops demonstrate normal wall thickness and caliber. No free fluid or air. Nodes and vessels: No retroperitoneal or mesenteric adenopathy by size criteria. Aorta and inferior vena cava are normal in size. Miscellaneous: No ventral hernias. PELVIS: Genitourinary: Bladder wall thickness is normal. The uterus demonstrates an unremarkable appearance for age. No adnexal masses are seen. Physiologic cystic changes can be seen involving the ovaries. Miscellaneous: No inguinal hernias or adenopathy. Bones: No suspicious bony lesions. No vertebral body compression fractures. IMPRESSION: Normal appendix. Physiologic appearing cystic changes are seen of the ovaries, without significant pelvic pathology se en in this patient with right lower quadrant pain. Incidental note is made of: Accessory splenule Note: Findings of the normal appendix relayed to the on-call physician via the answering service at [facility] [phone] at 4:30 PM [place] time. The on-call physician will call back if there are any ques tions. Reviewed by: Santy Ruffin MD on 12/25/2019 4:30 PM [facility]ONSON Approved by: Santy Ruffin MD on 12/25/2019 4:30 PM [facility] Station ID: [id number]
== END 2019-12-25 15:53 | disposition home or self-care (01) ==
LOC: DI 15:52
PROVIDERS: ATTEND Family Medicine
DX: R93.89 Abnormal findings on diagnostic imaging of other specified body structures (principal)
CPT/HCPCS: 74177; Q9967